=== PATIENT | male | born 1995 | race Caucasian/White ===

== ENCOUNTER 2016-09-17 12:03 | Emergency (ER) | payer BC ==
[2016-09-17 13:11] VITALS: BP 166/75
--- NOTE | 2016-09-17 23:50 | ER ---
DATE SEEN: 09/17/2016 TIME SEEN: 12:30 p.m. CHIEF COMPLAINT: Injury of the left ankle. HISTORY OF PRESENT ILLNESS: This is a 20-year-old male who rolled his ankle yesterday when he missed a step. He rolled it inwards, now complains of pain and swelling. Pain is worse with weightbearing. ALLERGIES: None. REVIEW OF SYSTEMS: No other trauma. All other systems noncontributory. PHYSICAL EXAMINATION: VITAL SIGNS: His blood pressure is 166/75, temperature 98.1, pulse 76. EXTREMITIES: Left ankle revealed swelling and effusion of the ankle. Tenderness to the midportion of the foot and the lateral malleolus. Peripheral pulses are present. Range of motion was full. LABORATORY DATA: X-ray negative for any break that I could see. IMPRESSION: Ankle sprain. PLAN: An ankle brace was given. He was advised to elevate, rest and take ibuprofen p.r.n. /[id number] MARINA/NEVAEH
--- NOTE | 2016-09-19 10:55 | CR ---
INDICATION: Fell on stairs. LEFT ANKLE: Three views of the left ankle revealed soft tissue swelling overlying the lateral malleolus. A fracture, dislocation, or other significant appearing bone or joint abnormality of an acute nature was not identified. There are some very minimal hypertrophic changes at the ankle mortise, suggesting minimal post traumatic osteoarthritis, as well as a tiny plantar calcaneal spur. MTDD
== END 2016-09-17 12:55 | disposition home or self-care (01) ==
LOC: FB.ED 12:03
DX: S93.402A Sprain of unspecified ligament of left ankle, initial encounter (principal); W18.43XA Slipping, tripping and stumbling without falling due to stepping from one level to another, initial encounter
CPT/HCPCS: 29515; 73610-LT; 99283